=== PATIENT | female | born 1955 | race African-American/Black ===

== ENCOUNTER 2019-04-27 13:02 | Emergency (ER) | payer MEDICARE, MEDICAID ==
[~2019-04-27] VITALS: Ht 175.3 cm; Wt 79.5 kg
[~2019-04-27 13:02] MED LIST: CELE-193 PO; CEPH-571 PO; CLIN150C2 PO; CYCL-1 PO; DICL100G15 TOP; DIPH-423 PO; ESOM40CA PO; HYDR-4353 PO; HYDR-4383 PO; IBUP-1985 PO; IBUP-1986 PO; LIDO700A47 TOP; TRAM50TA2 PO
[2019-04-27 13:24] VITALS: BP 123/90
[2019-04-27] MEDS ORDERED: TRAM50TA2 PO (15:39)
[2019-04-27] MEDS ORDERED: HYDROcodone/acetaminophen 5mg/325mg tablet PO ONE (15:40)
== END 2019-04-27 15:56 | disposition home or self-care (01) ==
LOC: ER 13:03
DX: G89.29 Other chronic pain (principal); M25.562 Pain in left knee; M25.561 Pain in right knee; M54.5 Low back pain; K21.9 Gastro-esophageal reflux disease without esophagitis; Z87.11 Personal history of peptic ulcer disease; Z98.890 Other specified postprocedural states; Z88.0 Allergy status to penicillin; Z88.2 Allergy status to sulfonamides; Z88.5 Allergy status to narcotic agent; Z79.2 Long term (current) use of antibiotics; Z79.899 Other long term (current) drug therapy
CPT/HCPCS: 73560; 99284